=== PATIENT | female | born 1990 | race African-American/Black ===

== ENCOUNTER → 2018-01-09 | Outpatient (CLI) | payer OTHER | LOC: HPND 13:04 | PROVIDERS: ATTEND Obstetrics & Gynecology | DX: O26.842 Uterine size-date discrepancy, second trimester (principal); Z36.2 Encounter for other antenatal screening follow-up | CPT/HCPCS: 76805 ==

== ENCOUNTER 2018-05-24 15:18 | Inpatient (IN) ==
[2018-05-24] MEDS ORDERED: fentaNYL Citrate Inj 100 MCG/2 ML Ampul IV.PUSH PRN ×2 (17:02)
[2018-05-24] MEDS ORDERED: Sodium Chlor 0.9% Inj 500 ML IV.SIG PRN (17:02)
[2018-05-24] MEDS ORDERED: Sod Chloride 0.9% Inj 1,000 ML IV.CONT PRN (17:02)
[2018-05-24] MEDS ORDERED: Oxytocin 30 Units/500ml Premix 30 UNITS/500 ML BAG IV.SIG ONE (17:02)
[2018-05-24] MEDS ORDERED: Naloxone Inj 0.4 MG/ML Vial IV.PUSH PRN (17:02)
[2018-05-24] MEDS ORDERED: Penicillin G Potassium Inj 5,000,000 UNIT in Sodium Chloride 0.9% Inj 100 ML IV.SIG ONE (17:02)
--- NOTE | 2018-05-24 17:09 | P.OBGPN ---
OB - ED Note Patient Name: Eunice Garcia Date of : 89 Patient Status: Emergency Emergency Provider: Hermelindo Bills Date: 05/24/18 16:31 Initialization Date: 05/24/18 16:31 History of Present Illness Primary Care Physician: No Primary Care Physician Chief Complaint: Hypertension, proteinuria History of Present Illness: 27-year-old GBS+ at 39 weeks and [address] Choudhury for elevated blood pressures and proteinuria. Her blood pressure in his office today was 134 /96. On May 22 it was 148/94 and 144/85. Patient's previous blood pressures were normal at 120s/60s as recently as May 14. Patient had a 24- hour urine collection with a protein of 924 and a P\C ratio of 583. Patient denies headache, blurry vision, right upper quadrant pain. She denies any leakage of fluid, vaginal bleeding. She does report abdominal pressure likely contractions. Patient was late to care. She started her care at 17 weeks and 6 days. OB\Help Desk Associate history: GBS positive Passed 50g 1 hour glucose screening with a 67 Patient has an abnormal Pap smear during this . She had a colposcopy at 23 weeks. She will require a LEEP procedure . Past medical history: Denies any significant medical history Past surgical history: Denies any surgery Allergies: NKDA Medications: Ranitidine, vitamin Family history maternal grand father with hypertension, paternal grandmother with dementia Social: Former smoker, denies drug, alcohol, or tobacco use during Weeks Gestation:: 39 Para: 0 : 1 Review of Systems All other systems reviewed negative except as stated in HPI PMFSH - History History Provided By: Patient - Medical / Surgical Hx Neg / Unobtainable Surgical History: No Previous Surgery - Social History I have reviewed the patient's Social History: Yes - Tobacco History Tobacco Use In Past 30 Days: No Smoking Status: Former smoker Exam Vital signs: Vital Signs 05/24/18 16:04 05/24/18 16:15 05/24/18 16:25 Temperature 99.0 F Pulse Rate 83 85 Respiratory Rate 18 18 Blood Pressure 148/91 H 141/90 H Narrative: GENERAL: Well-nourished, well-developed patient. SKIN: Warm and dry. HEAD: Normocephalic and atraumatic. EYES: No scleral icterus. No injection or drainage. ENT: No nasal drainage noted. Mucous membranes pink. Airway patent. NECK: Supple, trachea midline. No JVD. CARDIOVASCULAR: Regular rate and rhythm without murmurs, gallops, or rubs. RESPIRATORY: Breath sounds equal bilaterally. No accessory muscle use. ABDOMEN/GI: Abdomen soft, non-tender, bowel sounds present, no rebound, no guarding Gravid to 39 weeks size GENITOURINARY: External Genitalia: intact and normal in appearance Cervix: Posterior Dilatation: 4 Effacement: 50 Station: -1 Presentation: Vertex Membranes: Intact Uterine Contractions: Present FHT's: Category: 1 Baseline: 140s Reactive: Yes Variability: Moderate Decels: None EXTREMITIES: 2+ pedal edema. BACK: Nontender without obvious deformity. No CVA tenderness. NEUROLOGICAL: Awake and alert. Motor and sensory grossly within normal limits. Five out of 5 muscle strength in all muscle groups. Normal speech. Assessment and Plan - Diagnosis (1) Preeclampsia Code(s): O14.90 - Unspecified pre-eclampsia, unspecified trimester Status: Acute (2) 39 weeks gestation of Code(s): Z3A.39 - 39 weeks gestation of Status: Acute (3) Encounter for induction of labor Code(s): Z34.90 - Encounter for supervision of normal , unspecified, unspecified trimester Status: Acute - Plan 27-year-old GBS+ at 39 weeks and 1 day with preeclampsia. --Admit to labor and delivery --GBS positive with no known drug allergies so we will treat with 2 doses of penicillin per protocol --Induction of labor with 08/14/29 Pitocin --Monitor blood pressures --CMP, CBC, UA, uric acid Discharge Plan - Discharge Disposition Patient Disposition: 30 Still Patient - Discharge Condition Condition: Stable - Physicians Team ED Provider: Hermelindo Bills Primary Care Provider: Primary Care Asmita Resendiz - Rxs /Orders / Referrals /Forms Referrals: Primary Care Asmita Resendiz [Primary Care Provider] - See Instructions - Discharge Instructions Print Language: Nepali
[2018-05-24] MEDS ORDERED: Citric Acid/Sodium Citrate Liq 30 ML UDC PO SCH (17:15)
[2018-05-24 17:29] LABS: Bacteria,Urine Occasional /hpf; Bilirubin,Urine Negative (Negative); Clarity,Urine Cloudy (Clear); Color,Urine Yellow (Yellw/Straw); Glucose,Urine (UA) 500 or Greater mg/dL (Negative); Leukocyte Esterase,Urine Trace (Negative); Mucus,Urine Many /lpf (Occasional); Nitrite,Urine Negative (Negative); Specific Gravity,Urine 1.026 (1.002-1.035); Squamous Epithelial Cell,Urine 4 /hpf (0-5)
[2018-05-24 17:48] LABS: Baso % (Auto) 0.3 % (0.0-2.0); Eos % (Auto) 0.4 % (0.0-4.0); Hematocrit 30.1 % (35.0-46.0); Hemoglobin 10.2 gm/dL (11.6-15.3); Lymph # (Auto) 1.5 th/mm3 (1.0-4.8); Lymph % (Auto) 13.7 % (9.0-44.0); Mean Corpuscular HGB Conc 33.8 % (32.0-36.0); Mean Corpuscular Hemoglobin 27.3 pg (27.0-34.0); Mean Corpuscular Volume 80.6 fL (80.0-100.0); Mean Platelet Volume 11.2 fL (7.0-11.0); Mono % (Auto) 8.9 % (0.0-8.0); Neut # (Auto) 8.5 th/mm3 (1.8-7.7); Neut % (Auto) 76.7 % (16.0-70.0); Platelet Count 174 th/mm3 (150-450); Red Blood Count 3.73 mil/mm3 (4.00-5.30); Red Cell Distribution Width 15.7 % (11.6-17.2); White Blood Count 11.1 th/mm3 (4.0-11.0)
[2018-05-24] MEDS: Oxytocin 30 Units/500ml Premix 30 UNITS/500 ML BAG IV.SIG PRN (18:07)
[2018-05-24 18:25] LABS: Albumin 2.4 g/dL (3.4-5.0); Anion Gap 9 meq/L (5-15); Aspartate Aminotransferase 20 U/L (15-37); Blood Urea Nitrogen 7 mg/dL (7-18); Calcium 8.8 mg/dL (8.5-10.1); Carbon Dioxide 22.5 meq/L (21.0-32.0); Chloride 107 meq/L (98-107); Glomerular Filtration Rate Greater Than 89 mL/min (>89); Glucose,Random 78 mg/dL (74-106); Potassium 4.1 meq/L (3.5-5.1); Sodium 138 meq/L (136-145); Uric Acid 2.7 mg/dl (2.6-6.0)
[2018-05-24 18:26] LABS: Alanine Aminotransferase 19 U/L (10-53)
[2018-05-24 18:28] LABS: Alkaline Phosphatase 136 U/L (45-117); Total Protein 6.5 g/dL (6.4-8.2)
[2018-05-24 19:27] LABS: Amphetamine Urine With Conf Neg (Neg); Benzodiazepine Urine With Conf Neg (Neg)
[2018-05-24] MEDS ORDERED: Penicillin G Potassium Inj 2,500,000 UNIT in Sodium Chlor 0.9% Inj 100 ML IV.SIG SCH ×2 (21:04→22:00)
[2018-05-24] MEDS ORDERED: fentaNYL 2MCG-Bupiv 0.125% Epi 150 ML EPIDURAL ONE (22:04)
[2018-05-24] MEDS ORDERED: Lidocaine 2%/Epinephrine 1:100,000 Inj 20 ML Vial ONE (22:13)
[2018-05-24] MEDS ORDERED: fentaNYL Citrate Inj 100 MCG/2 ML Ampul EPIDURAL ONE (22:46)
[2018-05-24] MEDS ORDERED: fentaNYL 2MCG-Bupiv 0.125% Epi 150 ML EPIDURAL PRN (22:46)
[2018-05-24 22:58] LABS: Protein/Creatinine Ratio,Urine 0.38 (0.00-0.14)
[2018-05-25] MEDS ORDERED: miSOPROStol 200 MCG Tablet ONE ×2 (01:57→06:28)
[2018-05-25] MEDS ORDERED: Benzocaine 20% Top Spray 60 ML Can TOPICAL PRN (02:10)
[2018-05-25] MEDS ORDERED: Naloxone Inj 0.4 MG/ML Vial IV.PUSH PRN (02:10)
[2018-05-25] MEDS ORDERED: Witch Hazel 50%/Glyderin 12.5% 40 Pad Jar RECTAL PRN (02:10)
[2018-05-25] MEDS ORDERED: Zolpidem Tartrate 5 MG Tablet PO PRN (02:10)
[2018-05-25] MEDS ORDERED: Oxytocin 30 Units/500ml Premix 30 UNITS/500 ML BAG IV.CONT PRN (02:10)
[2018-05-25] MEDS ORDERED: Bisacodyl 10 MG Supp RECTAL PRN (02:10)
[2018-05-25] MEDS ORDERED: Acetaminophen 325 MG Tablet PO PRN (02:10)
[2018-05-25] MEDS ORDERED: miSOPROStol 200 MCG Tablet RECTAL ONE (02:11)
[2018-05-25] MEDS ORDERED: Famotidine 20 MG Tablet PO PRN (02:12)
--- NOTE | 2018-05-25 02:16 | P.OBDELI ---
Weeks Gestation: 39 Patient Started Active Labor: Yes Medical Induction of Labor: Yes Medical Induction Start Date: 05/24/18 Artificial Rupture of Membrane: Yes Artificial ROM Date: 05/24/18 Anesthesia: Epidural Episiotomy: midline Vaginal Delivery: Normal Presentation: Occiput anterior Nuchal Cord: x1 Delayed Cord Clamping (45 sec): Yes Placenta: Spontaneous delivery, Intact, 3 vessel cord Laceration: Episiotomy, 2 deg Repair: Vicryl running Estimated blood loss (mL): 400 : Female (bruna delivery of [place]. ) Female A score (1 min): 8 score (5 min): 9 Additional Information: Bruna delivery of [place]. Had some persistant oozing and gave her cytotec 400 micrograms per rectum. Bleeding now well controlled.
[2018-05-25] MEDS: Oxytocin 30 Units/500ml Premix 30 UNITS/500 ML BAG IV.SIG PRN (05:16)
[2018-05-25] MEDS ORDERED: Morphine Inj 4 MG/ML Vial IV.PUSH ONE (06:30)
[2018-05-25] MEDS: Senna/Docusate Sodium 8.6/50 MG Tablet PO SCH (11:51)
[2018-05-25] MEDS ORDERED: Diphtheria/Tetanus/Pertussis Vaccine Inj 0.5 ML Syringe IM ONE (16:00)
[2018-05-25] MEDS ORDERED: Measles/Mumps/Rubella Vaccine Inj 0.5 ML Vial SQ ONE (16:00)
[2018-05-26] MEDS: Senna/Docusate Sodium 8.6/50 MG Tablet PO SCH ×2 (08:18→20:18)
--- NOTE | 2018-05-26 09:41 | P.PNOB ---
Subjective Post day: 1 Interval history: Patient is a 27-year-old G 1 P 1 delivered at 30 weeks and 1 days. Patient is day 1 after induced vaginal delivery due to preeclampsia. Patient's pain is well-controlled. Patient reports eating and drinking without any nausea or vomiting. Patient reports minimal bleeding. Patient has passed gas but no bowel movements. Patient is walking without lower extremity pain or shortness of breath. Patient reports a headache last night that was alleviated by sleep. She denies headache, blurry vision, right upper quadrant pain, chest pain at the time of my evaluation. Objective Vital Signs/I&O: Vital Signs 05/25/18 14:00 05/25/18 16:00 05/25/18 20:00 Temperature 98.7 F Pulse Rate 82 92 H 101 H Respiratory Rate 20 20 18 Blood Pressure 152/97 H 133/75 129/79 05/26/18 08:00 Temperature 98.0 F Pulse Rate 84 Respiratory Rate 20 Blood Pressure 142/101 H Result Diagrams: 05/24/18 17:15 05/24/18 17:15 Objective Remarks: GENERAL: Well-nourished, well-developed patient. CARDIOVASCULAR: Regular rate and rhythm without murmurs, gallops, or rubs. RESPIRATORY: Breath sounds equal bilaterally. No accessory muscle use. ABDOMEN/GI: Abdomen soft, non-tender. Fundus: Firm, non-tender at umbilicus. GENITOURINARY: Light to moderate bleeding. EXTREMITIES: No cyanosis or edema, non-tender, without signs of DVT. Medications and IVs: Active Medications Acetaminophen (Tylenol) 650 mg PO Q4H PRN PRN Reason: PAIN SCALE 1 TO 2 Al Hydroxide/Mg Hydroxide (Milk Of Magnesia Liq) 30 ml PO Q12H PRN PRN Reason: Mild Constipation Benzocaine (Americaine 20% Top [place]sg[place]) 1 spray TOPICAL Q4H PRN PRN Reason: For Perineum Discomfort Last Admin: 05/26/18 04:56 Dose: 1 spray Bisacodyl (Dulcolax Supp) 10 mg RECTAL DAILY PRN PRN Reason: SEVERE CONSITIPATION Famotidine (Pepcid) 20 mg PO DAILY PRN PRN Reason: Heartburn Oxytocin (Pitocin 30 Units/Ns 500 Ml Premix) 30 units in 500 mls @ 1 mls/hr IV.SIG TITRATE PRN; Protocol PRN Reason: For induction of labor Last Admin: 05/25/18 05:16 Dose: 1 milliunit/min, 1 mls/hr Fentanyl/Bupivacaine/Sodium Chlor (Fentanyl 2 Mcg-Bupiv 0.125% Epi) 150 mls @ 12 mls/hr EPIDURAL PRN PRN PRN Reason: for Labor Pain Last Admin: 05/24/18 23:06 Dose: 12 mls/hr Oxytocin (Pitocin 30 Units/Ns 500 Ml Premix) 30 units in 500 mls @ 100 mls/hr IV.CONT UNSCH PRN PRN Reason: Heavy bleeding Ibuprofen (Motrin) 800 mg PO Q8H PRN PRN Reason: For Cramping Last Admin: 05/26/18 08:17 Dose: 800 mg Lactulose (Lactulose Liq) 30 ml PO DAILY PRN PRN Reason: SEVERE CONSITIPATION Naloxone HCl (Narcan Inj) 0.1 mg IV.PUSH Q2M PRN PRN Reason: for opiate reversal Nifedipine (Procardia Xl) 30 mg PO BID [facility] Ondansetron HCl (Zofran Odt) 4 mg PO Q6H PRN PRN Reason: NAUSEA OR VOMITING Senna/Docusate Sodium (Meme-Colace) 1 tab PO BID [facility] Last Admin: 05/26/18 08:18 Dose: 1 tab Sennosides (Senokot) 17.2 mg PO Q12H PRN PRN Reason: Moderate Constipation Sodium Chloride (Ns Flush) 2 ml IV.FLUSH BID [facility] Last Admin: 05/26/18 08:18 Dose: 2 ml Sodium Chloride (Ns Flush) 2 ml IV.FLUSH PRN PRN PRN Reason: FLUSH AFTER USING IV ACCESS Witch Demi/Glycerin (Tucks Pads) 1 applicatio RECTAL QID PRN PRN Reason: HEMORRHOIDS Last Admin: 05/26/18 04:55 Dose: 1 applicatio Zolpidem Tartrate (Ambien) 5 mg PO HS PRN PRN Reason: SLEEP Assessment and Plan - Diagnosis (1) Preeclampsia Code(s): O14.90 - Unspecified pre-eclampsia, unspecified trimester Status: Acute (2) Vaginal delivery Code(s): O80 - Encounter for full-term uncomplicated delivery Status: Acute - Plan Patient is a 27-year-old G 1 P 1 delivered at 30 weeks and 1 days. Patient is day 1 after induced vaginal delivery due to preeclampsia. Patient was counseled to do 6 weeks of pelvic rest. Patient was counseled to follow up in 6 weeks. Patient requested follow-up and contraception. --Afebrile --Elevated BP at 142/101 and 138/93 after Procardia administration-- changed Procardia from 30mg daily to Procardia XL 30 mg BID --Continue to monitor BP --Continue routine care --Motrin for pain --Encourage OOB --Pelvic rest for 6 weeks will need follow-up appointment at that time. --Anticipate discharge tomorrow
[2018-05-27 08:10] VITALS: BP 136/90; PULSE 101; RESP 20
--- NOTE | 2018-05-27 08:18 | P.PNOB ---
Subjective Post day: 2 Interval history: Patient is a 27-year-old G 1 P 1 delivered at 30 weeks and 1 days. Patient is day 2 after induced vaginal delivery due to preeclampsia. Patient's pain is well-controlled. Patient reports eating and drinking without any nausea or vomiting. Patient reports minimal bleeding. Patient is walking without lower extremity pain or shortness of breath. She denies headache, blurry vision, right upper quadrant pain, chest pain at the time of my evaluation. Objective Vital Signs/I&O: Vital Signs 05/26/18 09:48 05/26/18 20:00 05/27/18 04:33 Temperature 98.3 F Pulse Rate 87 84 Respiratory Rate 18 Blood Pressure 138/93 H 135/93 H 110/73 05/27/18 08:00 Temperature Pulse Rate 101 H Respiratory Rate 20 Blood Pressure 136/90 Result Diagrams: 05/24/18 17:15 05/24/18 17:15 Objective Remarks: GENERAL: Well-nourished, well-developed patient. CARDIOVASCULAR: Regular rate and rhythm without murmurs, gallops, or rubs. RESPIRATORY: Breath sounds equal bilaterally. No accessory muscle use. ABDOMEN/GI: Abdomen soft, non-tender. Fundus: Firm, non-tender at umbilicus. GENITOURINARY: Light to moderate bleeding. EXTREMITIES: No cyanosis or edema, non-tender, without signs of DVT. Medications and IVs: Active Medications Acetaminophen (Tylenol) 650 mg PO Q4H PRN PRN Reason: PAIN SCALE 1 TO 2 Al Hydroxide/Mg Hydroxide (Milk Of Magngilberto Liq) 30 ml PO Q12H PRN PRN Reason: Mild Constipation Benzocaine (Americaine 20% Top [place]) 1 spray TOPICAL Q4H PRN PRN Reason: For Perineum Discomfort Last Admin: 05/26/18 04:56 Dose: 1 spray Bisacodyl (Dulcolax Supp) 10 mg RECTAL DAILY PRN PRN Reason: SEVERE CONSITIPATION Famotidine (Pepcid) 20 mg PO DAILY PRN PRN Reason: Heartburn Oxytocin (Pitocin 30 Units/Ns 500 Ml Premix) 30 units in 500 mls @ 1 mls/hr IV.SIG TITRATE PRN; Protocol PRN Reason: For induction of labor Last Admin: 05/25/18 05:16 Dose: 1 milliunit/min, 1 mls/hr Fentanyl/Bupivacaine/Sodium Chlor (Fentanyl 2 Mcg-Bupiv 0.125% Epi) 150 mls @ 12 mls/hr EPIDURAL PRN PRN PRN Reason: for Labor Pain Last Admin: 05/24/18 23:06 Dose: 12 mls/hr Oxytocin (Pitocin 30 Units/Ns 500 Ml Premix) 30 units in 500 mls @ 100 mls/hr IV.CONT UNSCH PRN PRN Reason: Heavy bleeding Ibuprofen (Motrin) 800 mg PO Q8H PRN PRN Reason: For Cramping Last Admin: 05/27/18 08:04 Dose: 800 mg Lactulose (Lactulose Liq) 30 ml PO DAILY PRN PRN Reason: SEVERE CONSITIPATION Naloxone HCl (Narcan Inj) 0.1 mg IV.PUSH Q2M PRN PRN Reason: for opiate reversal Nifedipine (Procardia Xl) 30 mg PO BID [facility] Last Admin: 05/26/18 20:18 Dose: 30 mg Ondansetron HCl (Zofran Odt) 4 mg PO Q6H PRN PRN Reason: NAUSEA OR VOMITING Senna/Docusate Sodium (Meme-Colace) 1 tab PO BID [facility] Last Admin: 05/26/18 20:18 Dose: 1 tab Sennosides (Senokot) 17.2 mg PO Q12H PRN PRN Reason: Moderate Constipation Sodium Chloride (Ns Flush) 2 ml IV.FLUSH BID [facility] Last Admin: 05/26/18 20:18 Dose: 2 ml Sodium Chloride (Ns Flush) 2 ml IV.FLUSH PRN PRN PRN Reason: FLUSH AFTER USING IV ACCESS Witch Demi/Glycerin (Tucks Pads) 1 applicatio RECTAL QID PRN PRN Reason: HEMORRHOIDS Last Admin: 05/26/18 04:55 Dose: 1 applicatio Zolpidem Tartrate (Ambien) 5 mg PO HS PRN PRN Reason: SLEEP Assessment and Plan - Diagnosis (1) Preeclampsia Code(s): O14.90 - Unspecified pre-eclampsia, unspecified trimester Status: Acute (2) Vaginal delivery Code(s): O80 - Encounter for full-term uncomplicated delivery Status: Acute - Plan Patient is a 27-year-old G 1 P 1 delivered at 30 weeks and 1 days. Patient is day 2 after induced vaginal delivery due to preeclampsia. Patient was counseled to do 6 weeks of pelvic rest. Patient was counseled to follow up with her PCP or OB provider early this week for BP monitoring. --Afebrile --BP at 110/73 Continue Procardia XL 30 mg BID --Continue to monitor BP --Continue routine care --Motrin for pain --Encourage OOB --Follow up early this week for BP monitoring --Pelvic rest for 6 weeks --Anticipate discharge today - Attending Attestation The exam, history, and the medical decision-making described in the above note were completed with the assistance of the resident physician. I reviewed and agree with the findings presented. I attest that I had a [id number] encounter with the patient on the same day, and personally performed and documented my assessment and findings in the medical record.
[2018-05-27] MEDS: Senna/Docusate Sodium 8.6/50 MG Tablet PO SCH (09:22)
[2018-05-27 12:14] VITALS: TEMP 98.7
[2018-05-27] MEDS ORDERED: Diphtheria/Tetanus/Pertussis Vaccine Inj 0.5 ML Syringe IM ONE (17:30)
== END 2018-05-27 18:10 | disposition home or self-care (01) ==
LOC: HOBED 15:18 → H2E 17:22 → H1EA 05-25 03:50
PROVIDERS: ADMIT Obstetrics & Gynecology; ATTEND Obstetrics & Gynecology